=== PATIENT | male | born 1950 | race Caucasian/White ===

== ENCOUNTER 2021-01-10 18:53 | Observation (INO) | payer MEDICARE, OTHER ==
[2021-01-10] MEDS ORDERED: ACETAMINOPHEN TAB 500 MG TAB PO STA (19:36)
[2021-01-10] MEDS ORDERED: IBUPROFEN 600 MG TAB PO STA (19:36)
[2021-01-10 20:27] LABS: Appearance,Urine Cloudy (Clear); Bacteria,Urine Rare /hpf; Bilirubin,Urine Negative (Negative); Blood,Urine Trace (Negative); Color,Urine Yellow; Glucose,Urine (UA) Negative (Negative); Ketones,Urine 2+ (Negative); Leukocyte Esterase,Urine Large (Negative); Mucus,Urine Many /hpf; Nitrite,Urine Negative (Negative); PH, Urine 5.5 (5.0-8.0); Protein,Urine 1+ (Negative); RBC,Urine 10 /hpf (0-5); Specific Gravity,Urine 1.027 (1.001-1.035); Squamous Epithelial Cell,Urine 1 /hpf (0-4); Urobilinogen,Urine <2.0 mg/dL (<2.0); WBC,Urine >182 /hpf (0-5)
[2021-01-10 20:34] LABS: Basophils % (A) 0 %; Eosinophils # (A) 0.1 k/uL (0-0.7); Eosinophils % (A) 1 %; HCT 41.8 % (39.0-53.0); HGB 14.6 gm/dL (13.0-17.5); Lymphocytes # (A) 0.7 k/uL (1.0-4.8); Lymphocytes % (A) 5 %; MCHC 34.9 g/dL (31.0-37.0); MCV 94.4 fL (80.0-100.0); Mean Platelet Volume 7.8; Monocytes # (A) 0.6 k/uL (0-1.0); Monocytes % (A) 4 %; Neutrophils # (A) 11.6 k/uL (1.3-7.7); Neutrophils % (A) 89 %; Platelet Count 222 k/uL (150-450); RBC 4.43 m/uL (4.30-5.90); RDW 11.8 % (11.5-15.5); WBC 13.1 k/uL (3.8-10.6)
[2021-01-10] MEDS: SODIUM CHLORIDE 0.9% 500 ML 500 ML IV SCH ×2 (20:40→21:10)
[2021-01-10 20:42] LABS: ALT 16 U/L (4-49); AST 31 U/L (17-59); African American GFR (CKD) >90 (>60 ml/min/1.73 sqM); Albumin 4.2 g/dL (3.5-5.0); Alkaline Phosphatase 72 U/L (38-126); Anion Gap 9 mmol/L; Blood Urea Nitrogen 16 mg/dL (9-20); Calcium 9.1 mg/dL (8.4-10.2); Carbon Dioxide 22 mmol/L (22-30); Chloride 102 mmol/L (98-107); Glucose 114 mg/dL (74-99); Non-African American GFR(CKD) 78 (>60 ml/min/1.73 sqM); Sodium 133 mmol/L (137-145); Total Bilirubin 0.9 mg/dL (0.2-1.3)
[2021-01-10 20:43] LABS: INR 0.9 (<1.2); Partial Thromboplastin Time 24.5 sec (22.0-30.0); Prothrombin Time 10.1 sec (9.0-12.0)
[2021-01-10] MEDS ORDERED: cefTRIAXone IN SWFI 1,000 MG/10 ML SYRINGE IVP STA (20:55)
--- NOTE | 2021-01-10 21:16 | ED ---
General Adult HPI - General Chief complaint: Urogenital Stated complaint: Pain when using bathroom, Fever and chills Time Seen by Provider: 01/10/21 19:16 Source: patient Mode of arrival: ambulatory Limitations: no limitations - History of Present Illness Initial comments: 70 year-old male patient presents to the emergency department for evaluation of dysuria and urinary incontinence that has been going on for the last 2-3 days. Patient denies any current sexual activity or concern for STI. Denies any back or flank pain. Does report some nausea, denies vomiting. Denies any abdominal pain, constipation, or diarrhea. Denies history of kidney stones or UTI. Denies any history of Diabetes. Patient denies any recent rash, cough, shortness of breath, chest pain, constipation, back pain, numbness, tingling, dizziness, weakness, headache, visual changes, or any other complaints. - Related Data Home Medications Medication Instructions Recorded Confirmed Acetaminophen [Tylenol] 1,000 mg PO Q4-6H PRN 01/10/21 01/10/21 Ascorbic Acid [Vitamin C] 1,000 mg PO HS 01/10/21 01/10/21 Cholecalciferol [Vitamin D3 (25 25 mcg PO DAILY 01/10/21 01/10/21 Mcg = 1000 Iu)] FLUoxetine HCL [PROzac] 40 mg PO DAILY 01/10/21 01/10/21 Glucosamine HCl/Chondroitin Cao 1 cap PO HS 01/10/21 01/10/21 [Glucosamine-Chondroitin Cap] L.acidoph,Paracasei, B.lactis 1 cap PO 01/10/21 01/10/21 [Probiotic] Loratadine 10 mg PO 01/10/21 01/10/21 Multivitamins, Thera [Multivitamin 1 tab PO 01/10/21 01/10/21 (formulary)] [place]-3 Fatty Acids [[place]-3] 1,000 mg PO HS 01/10/21 01/10/21 Potassium Gluconate [Potassium 99 mg PO 01/10/21 01/10/21 Gluconate ER] Simvastatin [Zocor] 20 mg PO 01/10/21 01/10/21 cycloSPORINE 0.05% OPHTH SOLN 1 drop BOTH EYES BID 01/10/21 01/10/21 [Restasis] Allergies Allergy/AdvReac Type Severity Reaction Status Date / Time milk AdvReac Diarrhea Verified 01/10/21 20:26 Review of Systems ROS Statement: Those systems with pertinent positive or pertinent negative responses have been documented in the HPI. ROS Other: All systems not noted in ROS Statement are negative. Past Medical History Past Medical History: Hypertension History of Any Multi-Drug Resistant Organisms: None Reported Past Surgical History: Orthopedic Surgery, Tonsillectomy Additional Past Surgical History / Comment(s): hip replacement Past Psychological History: No Psychological Hx Reported Smoking Status: Never smoker Past Alcohol Use History: None Reported Past Drug Use History: None Reported General Exam Limitations: no limitations General appearance: alert, in no apparent distress, other (This is a well- developed, well-nourished adult male patient in no acute distress. Vital signs upon presentation are temperature 103.1F, pulse 85, respirations 17, blood pressure 157/84, pulse ox 97% on room air.) Eye exam: Present: normal appearance, PERRL, EOMI. Absent: scleral icterus, conjunctival injection, periorbital swelling ENT exam: Present: normal exam, normal oropharynx, mucous membranes moist Respiratory exam: Present: normal lung sounds bilaterally. Absent: respiratory distress, wheezes, rales, rhonchi, stridor Cardiovascular Exam: Present: regular rate, normal rhythm, normal heart sounds. Absent: systolic murmur, diastolic murmur, rubs, gallop, clicks GI/Abdominal exam: Present: soft, normal bowel sounds. Absent: distended, tenderness, guarding, rebound, rigid Back exam: Present: normal inspection. Absent: CVA tenderness (R), CVA tenderness (L) Neurological exam: Present: alert, oriented X3, CN II-XII intact Psychiatric exam: Present: normal affect, normal mood Skin exam: Present: warm, dry, intact, normal color. Absent: rash Course Vital Signs 01/10/21 19:11 Temperature 103.1 F H Pulse Rate 85 Respiratory 17 Rate Blood Pressure 157/84 O2 Sat by Pulse 97 Oximetry Medical Decision Making - Medical Decision Making 70-year-old male patient presents for evaluation of dysuria and urinary incontinence that started 2-3 days ago. Physical examination did reveal soft nontender abdomen. No CVA tenderness. Labs reviewed and did reveal white blood cell count at 13.1, neutrophils 11.6, lymphocytes 0.7. Urinalysis showed 1+ protein, 2+ ketones, trace blood, large leukocyte esterase, 10 red blood cells, greater than 182 white blood cells, few white blood cell clumps, rare bacteria, and many mucus. He did test negative for COVID-19 and did receive both sides her vaccinations. I did discuss findings and results with him. We'll be giving IV Rocephin. Admitted to the hospital for further monitoring and evaluation. He is agreeable this plan. Case discussed with my attending Dr. Holland. - Lab Data Result diagrams: 01/10/21 20:11 01/10/21 20:11 Lab Results 01/10/21 01/10/21 01/10/21 Range/Units 20:11 20:11 20:11 WBC 13.1 H (3.8-10.6) k/uL RBC 4.43 (4.30-5.90) m/uL Hgb 14.6 (13.0-17.5) gm/dL Hct 41.8 (39.0-53.0) % MCV 94.4 (80.0-100.0) fL MCH 33.0 (25.0-35.0) pg MCHC 34.9 (31.0-37.0) g/dL RDW 11.8 (11.5-15.5) % Plt Count 222 (150-450) k/uL MPV 7.8 Neutrophils % 89 % Lymphocytes % 5 % Monocytes % 4 % Eosinophils % 1 % Basophils % 0 % Neutrophils # 11.6 H (1.3-7.7) k/uL Lymphocytes # 0.7 L (1.0-4.8) k/uL Monocytes # 0.6 (0-1.0) k/uL Eosinophils # 0.1 (0-0.7) k/uL Basophils # 0.0 (0-0.2) k/uL PT 10.1 (9.0-12.0) sec INR 0.9 (<1.2) APTT 24.5 (22.0-30.0) sec Sodium (137-145) mmol/L Potassium (3.5-5.1) mmol/L Chloride (98-107) mmol/L Carbon Dioxide (22-30) mmol/L Anion Gap mmol/L BUN (9-20) mg/dL Creatinine (0.66-1.25) mg/dL Est GFR (CKD-EPI)AfAm (>60 ml/min/1.73 sqM) Est GFR (CKD-EPI)NonAf (>60 ml/min/1.73 sqM) Glucose (74-99) mg/dL Plasma Lactic Acid Lucius (0.7-2.0) mmol/L Calcium (8.4-10.2) mg/dL Total Bilirubin (0.2-1.3) mg/dL AST (17-59) U/L ALT (4-49) U/L Alkaline Phosphatase (38-126) U/L Total Protein (6.3-8.2) g/dL Albumin (3.5-5.0) g/dL Urine Color Yellow Urine Appearance Cloudy (Clear) Urine pH 5.5 (5.0-8.0) Ur Specific [place] 1.027 (1.001-1.035) Urine Protein 1+ H (Negative) Urine Glucose (UA) Negative (Negative) Urine Ketones 2+ H (Negative) Urine Blood Trace H (Negative) Urine Nitrite Negative (Negative) Urine Bilirubin Negative (Negative) Urine Urobilinogen <2.0 (<2.0) mg/dL Ur Leukocyte Esterase Large H (Negative) Urine RBC 10 H (0-5) /hpf Urine WBC >182 H (0-5) /hpf Urine WBC Clumps Few H (None) /hpf Ur Squamous Epith Cells 1 (0-4) /hpf Urine Bacteria Rare H (None) /hpf Urine Mucus Many H (None) /hpf Coronavirus (PCR) (Not Detectd) 01/10/21 01/10/21 01/10/21 Range/Units 20:11 20:11 20:11 WBC (3.8-10.6) k/uL RBC (4.30-5.90) m/uL Hgb (13.0-17.5) gm/dL Hct (39.0-53.0) % MCV (80.0-100.0) fL MCH (25.0-35.0) pg MCHC (31.0-37.0) g/dL RDW (11.5-15.5) % Plt Count (150-450) k/uL MPV Neutrophils % % Lymphocytes % % Monocytes % % Eosinophils % % Basophils % % Neutrophils # (1.3-7.7) k/uL Lymphocytes # (1.0-4.8) k/uL Monocytes # (0-1.0) k/uL Eosinophils # (0-0.7) k/uL Basophils # (0-0.2) k/uL PT (9.0-12.0) sec INR (<1.2) APTT (22.0-30.0) sec Sodium 133 L (137-145) mmol/L Potassium 4.0 (3.5-5.1) mmol/L Chloride 102 (98-107) mmol/L Carbon Dioxide 22 (22-30) mmol/L Anion Gap 9 mmol/L BUN 16 (9-20) mg/dL Creatinine 0.99 (0.66-1.25) mg/dL Est GFR (CKD-EPI)AfAm >90 (>60 ml/min/1.73 sqM) Est GFR (CKD-EPI)NonAf 78 (>60 ml/min/1.73 sqM) Glucose 114 H (74-99) mg/dL Plasma Lactic Acid Lucius 0.9 (0.7-2.0) mmol/L Calcium 9.1 (8.4-10.2) mg/dL Total Bilirubin 0.9 (0.2-1.3) mg/dL AST 31 (17-59) U/L ALT 16 (4-49) U/L Alkaline Phosphatase 72 (38-126) U/L Total Protein 7.0 (6.3-8.2) g/dL Albumin 4.2 (3.5-5.0) g/dL Urine Color Urine Appearance (Clear) Urine pH (5.0-8.0) Ur Specific [place] (1.001-1.035) Urine Protein (Negative) Urine Glucose (UA) (Negative) Urine Ketones (Negative) Urine Blood (Negative) Urine Nitrite (Negative) Urine Bilirubin (Negative) Urine Urobilinogen (<2.0) mg/dL Ur Leukocyte Esterase (Negative) Urine RBC (0-5) /hpf Urine WBC (0-5) /hpf Urine WBC Clumps (None) /hpf Ur Squamous Epith Cells (0-4) /hpf Urine Bacteria (None) /hpf Urine Mucus (None) /hpf Coronavirus (PCR) Not Detected (Not Detectd) Disposition Clinical Impression: UTI (urinary tract infection), SIRS (systemic inflammatory response syndrome) Disposition: ADMITTED IP TO THIS [facility] Condition: Serious Referrals: Darnell Ferreira MD [Primary Care Provider] - 1-2 days Decision to Admit Reason: Admit from EC Decision Date: 01/10/21 Decision Time: 21:19
[2021-01-10] MEDS ORDERED: NALOXONE 0.4 MG/ML 1 ML VIAL IV PRN (21:32)
[2021-01-10] MEDS ORDERED: ACETAMINOPHEN TAB 325 MG TAB PO PRN (21:50)
[2021-01-10] MEDS: SODIUM CHLORIDE 0.9% 1,000 ML IV SCH (23:17)
--- NOTE | 2021-01-10 23:36 | P.HPIM ---
History of Present Illness H&P Date: 01/10/21 The patient is a 70-year-old male with a PMH of hypertension who presented to the emergency room with complaints of dysuria and urinary incontinence. He reports that his symptoms started roughly 3 days ago and gradually progressed and subsequently developed fever and chills. He denied back or flank pain or pain radiating to the groin. He further denied history of STI's or any concerns regarding high-risk sexual activity or new sexual partners. Denied history of kidney stones. Patient reports that he did have prior bout of UTI several months ago for which she was seen at a urologist office where no structural defects or cause for UTI was found. He further denied chest discomfort, shortn ess of breath, cough. Denied nausea, vomiting, abdominal pain, diarrhea. The patient reports feeling significantly better at time of evaluation since his initial presentation. In the emergency room, the patient was febrile upon presentation with T-max of 103.1. Laboratory evaluation was remarkable for leukocytosis of 13.1, and UA consistent with UTI. Review of systems: Pertinent positives and negatives as discussed in HPI, a complete review of systems was performed and all other systems are negative. Physical examination: General: non toxic, no distress, appears at stated age, obese Derm: no unusual rashes/lesions no unusual ecchymoses, warm, dry Head: atraumatic, normocephalic, symmetric Eyes: EOMI, no lid lag, anicteric sclera, pupils equal round reactive to light ENT: Nose and ears atraumatic, no thrush, no pharyngeal erythema Neck: No thyromegaly, no cervical lymphadenopathy, trachea midline, supple Mouth: no lip lesion, mucus membranes moist Cardiovascular: S1S2 reg, no murmur, positive posterior tibial pulse bilateral, no edema, capillary refill less than 2 seconds Lungs: CTA bilateral, no rhonchi, no rales , no accessory muscle use Abdominal: soft, nontender to palpation, no guarding, no appreciable organomegaly, normal bowel sounds Ext: no gross muscle atrophy, muscle strength 5 out of 5 in all 4 extremities grossly, no contractures, Neuro: CN II-XI grossly intact, light touch intact all 4 extremities, finger to nose within normal limits, Psych: Alert, oriented, appropriate affect Assessment/plan Sepsis secondary to UTI -Continue with ceftriaxone -IV fluids -Follow up urine and blood cultures Chronic conditions: Hyperlipidemia -Continue with meds DVT prophylaxis -Heparin subcu The patient is admitted with an anticipated less than 2 midnight stay for evaluation of UTI. CODE STATUS:Full Code Discussed with: Patient Anticipated discharge date: in am Anticipated discharge place: Home Past Medical History Past Medical History: Hypertension History of Any Multi-Drug Resistant Organisms: None Reported Past Surgical History: Orthopedic Surgery, Tonsillectomy Additional Past Surgical History / Comment(s): hip replacement Past Psychological History: No Psychological Hx Reported Smoking Status: Never smoker Past Alcohol Use History: None Reported Past Drug Use History: None Reported - Past Family History Father Family Medical History: Cancer Medications and Allergies Home Medications Medication Instructions Recorded Confirmed Type Acetaminophen [Tylenol] 1,000 mg PO Q4-6H PRN 01/10/21 01/10/21 History Ascorbic Acid [Vitamin C] 1,000 mg PO HS 01/10/21 01/10/21 History Cholecalciferol [Vitamin D3 (25 25 mcg PO DAILY 01/10/21 01/10/21 History Mcg = 1000 Iu)] FLUoxetine HCL [PROzac] 40 mg PO DAILY 01/10/21 01/10/21 History Glucosamine HCl/Chondroitin Cao 1 cap PO HS 01/10/21 01/10/21 History [Glucosamine-Chondroitin Cap] L.acidoph,Paracasei, B.lactis 1 cap PO HS 01/10/21 01/10/21 History [Probiotic] Loratadine 10 mg PO HS 01/10/21 01/10/21 History Multivitamins, Thera [Multivitamin 1 tab PO HS 01/10/21 01/10/21 History (formulary)] [place]-3 Fatty Acids [[place]-3] 1,000 mg PO HS 01/10/21 01/10/21 History Potassium Gluconate [Potassium 99 mg PO HS 01/10/21 01/10/21 History Gluconate ER] Simvastatin [Zocor] 20 mg PO HS 01/10/21 01/10/21 History cycloSPORINE 0.05% OPHTH SOLN 1 drop BOTH EYES BID 01/10/21 01/10/21 History [Restasis] Allergies Allergy/AdvReac Type Severity Reaction Status Date / Time milk AdvReac Diarrhea Verified 01/10/21 20:26 Physical Exam Vitals: Vital Signs Temp Pulse Pulse Resp BP BP Pulse Ox 01/10/21 22:20 99.8 F H 62 16 120/72 96 01/10/21 22:00 99.3 F 68 18 146/53 95 01/10/21 21:15 102.3 F H 71 18 140/73 95 01/10/21 19:11 103.1 F H 85 17 157/84 97 Intake and Output 01/10/21 01/10/21 01/11/21 14:59 22:59 06:59 Other: Voiding Method Toilet Weight 94.347 kg Results CBC & Chem 7: 01/10/21 20:11 01/10/21 20:11 Labs: Abnormal Lab Results - Last 24 Hours (Table) 01/10/21 01/10/21 01/10/21 Range/Units 20:11 20:11 20:11 WBC 13.1 H (3.8-10.6) k/uL Neutrophils # 11.6 H (1.3-7.7) k/uL Lymphocytes # 0.7 L (1.0-4.8) k/uL Sodium 133 L (137-145) mmol/L Glucose 114 H (74-99) mg/dL Urine Protein 1+ H (Negative) Urine Ketones 2+ H (Negative) Urine Blood Trace H (Negative) Ur Leukocyte Esterase Large H (Negative) Urine RBC 10 H (0-5) /hpf Urine WBC >182 H (0-5) /hpf Urine WBC Clumps Few H (None) /hpf Urine Bacteria Rare H (None) /hpf Urine Mucus Many H (None) /hpf Thrombosis Risk Factor Assmnt - Choose All That Apply Each Risk Factor Represents 2 Points: Age 61-74 years Thrombosis Risk Factor Assessment Total Risk Factor Score: 2 Thrombosis Risk Factor Assessment Level: Low Risk
[2021-01-11] MEDS: HEPARIN SODIUM,PORCINE/PF 5,000 UNIT/0.5 ML SYRINGE SQ SCH ×3 (00:11→15:12)
[2021-01-11] MEDS: SODIUM CHLORIDE 0.9% 1,000 ML IV SCH ×3 (08:04→21:31)
--- NOTE | 2021-01-11 14:15 | P.PN ---
Subjective Progress Note Date: 01/11/21 No new complaints today. Pt feels much better, close to baseline. Pending UCx. Objective - Vital Signs Vital signs: Vital Signs Temp 99.2 F 01/11/21 07:00 Pulse 61 01/11/21 07:00 Resp 18 01/11/21 07:00 BP 148/75 01/11/21 07:00 Pulse Ox 99 01/11/21 07:00 Intake & Output 01/10/21 01/11/21 01/11/21 18:59 06:59 18:59 Weight 94.347 kg Other: Voiding Method Toilet # Voids 1 - Exam Gen: awake, alert HEENT: normocephalic, atraumatic, good hearing acuity, moist mucous membranes Resp: good air exchange, breathing comfortably with no accessory muscle use CVS: good distal perfusion x 4, GI: soft, NTTP, ND : no SPT, no CVAT, bustamante catheter not present MSK: no pitting edema, no clubbing Neuro: non-focal, moving all extremities Psych: cooperative, euthymic mood - Labs CBC & Chem 7: 01/10/21 20:11 01/10/21 20:11 Labs: Abnormal Lab Results - Last 24 Hours (Table) 01/10/21 01/10/21 01/10/21 Range/Units 20:11 20:11 20:11 WBC 13.1 H (3.8-10.6) k/uL Neutrophils # 11.6 H (1.3-7.7) k/uL Lymphocytes # 0.7 L (1.0-4.8) k/uL Sodium 133 L (137-145) mmol/L Glucose 114 H (74-99) mg/dL Urine Protein 1+ H (Negative) Urine Ketones 2+ H (Negative) Urine Blood Trace H (Negative) Ur Leukocyte Esterase Large H (Negative) Urine RBC 10 H (0-5) /hpf Urine WBC >182 H (0-5) /hpf Urine WBC Clumps Few H (None) /hpf Urine Bacteria Rare H (None) /hpf Urine Mucus Many H (None) /hpf Assessment and Plan Assessment: Sepsis secondary to UTI -Continue with ceftriaxone -IV fluids -Follow up urine and blood cultures Chronic conditions: Hyperlipidemia -Continue with meds DVT prophylaxis -Heparin subcu The patient is admitted with an anticipated less than 2 midnight stay for evaluation of UTI. CODE STATUS:Full Code Discussed with: Patient Anticipated discharge date: in am Anticipated discharge place: Home
[2021-01-11] MEDS ORDERED: ATORVASTATIN 10 MG TAB PO SCH (21:00)
[2021-01-12] MEDS: HEPARIN SODIUM,PORCINE/PF 5,000 UNIT/0.5 ML SYRINGE SQ SCH ×2 (00:17→07:31)
[2021-01-12 02:13] VITALS: RESP 17
[2021-01-12] MEDS: SODIUM CHLORIDE 0.9% 1,000 ML IV SCH (03:36)
[2021-01-12 07:32] VITALS: BP 136/76; PULSE 68; TEMP 98.5
[2021-01-12 09:19] LABS: HGB 11.8 g/dL (13.0-17.0); MCH 31.7 pg (27.0-32.0); MCHC 32.8 g/dL (32.0-37.0); MCV 96.8 fL (80.0-97.0); Mean Platelet Volume 9.7 fL (9.5-12.2); Platelet Count 188 X 10*3/uL (140-440); RBC 3.72 X 10*6/uL (4.40-5.60); RDW 11.9 % (11.5-14.5); WBC 7.95 X 10*3/uL (4.50-10.00)
[2021-01-12 09:31] LABS: African American GFR (CKD) 89.2 (60.0-200.0); Calcium 8.7 mg/dL (8.7-10.3)
--- NOTE | 2021-01-12 13:01 | P.DS ---
Providers Date of admission: 01/10/21 21:34 Expected date of discharge: 01/12/21 Attending physician: Sandie Eckert MD Primary care physician: Darnell Ferreira [facility] Course: Sepsis secondary to UTI Patient admitted for UTI. Started on ceftriaxone and IVF. UCx did not show microbial growth. However, patient's symptoms of dysuria and hesitancy, as well as chills/sweats, resolved after 2 days of abx. Patient was switched to oral ciprofloxacin to complete an 8 day course. Pt will f/u with PCP. Chronic conditions: Hyperlipidemia -No changes to home meds Assessment: Gen: awake, alert HEENT: normocephalic, atraumatic, good hearing acuity, moist mucous membranes Resp: good air exchange, breathing comfortably with no accessory muscle use CVS: good distal perfusion x 4, GI: soft, NTTP, ND : no SPT, no CVAT, bustamante catheter not present MSK: no pitting edema, no clubbing Neuro: non-focal, moving all extremities Psych: cooperative, euthymic mood Patient Condition at Discharge: Good Plan - Discharge Summary Discharge Rx Participant: No New Discharge Prescriptions: New Ciprofloxacin HCl [Cipro] 500 mg PO Q12H #10 tab Continue Multivitamins, Thera [Multivitamin (formulary)] 1 tab PO HS Cholecalciferol [Vitamin D3 (25 Mcg = 1000 Iu)] 25 mcg PO DAILY FLUoxetine HCL [PROzac] 40 mg PO DAILY Acetaminophen [Tylenol] 1,000 mg PO Q4-6H PRN PRN Reason: Pain Or Fever > 100.5 cycloSPORINE 0.05% OPHTH SOLN [Restasis] 1 drop BOTH EYES BID Simvastatin [Zocor] 20 mg PO HS Loratadine 10 mg PO HS L.acidoph,Paracasei, B.lactis [Probiotic] 1 cap PO HS Glucosamine HCl/Chondroitin Cao [Glucosamine-Chondroitin Cap] 1 cap PO HS Ascorbic Acid [Vitamin C] 1,000 mg PO HS [place]-3 Fatty Acids [[place]-3] 1,000 mg PO HS Potassium Gluconate [Potassium Gluconate ER] 99 mg PO HS Discharge Medication List Acetaminophen [Tylenol] 1,000 mg PO Q4-6H PRN 01/10/21 [History] Ascorbic Acid [Vitamin C] 1,000 mg PO HS 01/10/21 [History] Cholecalciferol [Vitamin D3 (25 Mcg = 1000 Iu)] 25 mcg PO DAILY 01/10/21 [History] FLUoxetine HCL [PROzac] 40 mg PO DAILY 01/10/21 [History] Glucosamine HCl/Chondroitin Cao [Glucosamine-Chondroitin Cap] 1 cap PO HS 01/10/21 [History] L.acidoph,Paracasei, B.lactis [Probiotic] 1 cap PO HS 01/10/21 [History] Loratadine 10 mg PO HS 01/10/21 [History] Multivitamins, Thera [Multivitamin (formulary)] 1 tab PO HS 01/10/21 [History] [place]-3 Fatty Acids [[place]-3] 1,000 mg PO HS 01/10/21 [History] Potassium Gluconate [Potassium Gluconate ER] 99 mg PO HS 01/10/21 [History] Simvastatin [Zocor] 20 mg PO HS 01/10/21 [History] cycloSPORINE 0.05% OPHTH SOLN [Restasis] 1 drop BOTH EYES BID 01/10/21 [History] Ciprofloxacin HCl [Cipro] 500 mg PO Q12H #10 tab 01/12/21 [Rx] Follow up Appointment(s)/Referral(s): Darnell Ferreira MD [Primary Care Provider] - 1-2 days Patient Instructions/Handouts: Urinary Tract Infection in Men (DC) Activity/Diet/Wound Care/Special Instructions: Take antibiotics until completely gone. Drink plenty of fluid. Discharge Disposition: HOME SELF-CARE
== END 2021-01-12 12:10 | disposition home or self-care (01) ==
LOC: EC 18:53 → 4SSUR 21:34
PROVIDERS: ADMIT Internal Medicine; ATTEND Internal Medicine
DX: A41.9 Sepsis, unspecified organism (principal); N39.0 Urinary tract infection, site not specified; E78.5 Hyperlipidemia, unspecified; Z20.822 Contact with and (suspected) exposure to COVID-19; I10 Essential (primary) hypertension; Z79.899 Other long term (current) drug therapy; Z91.011 Allergy to milk products; Z96.649 Presence of unspecified artificial hip joint; Z80.9 Family history of malignant neoplasm, unspecified
CPT/HCPCS: 99284; 96366 ×2; 96372; 96365; 96361; 96375; 36415; 93005; 80053; 80048; 83605; 85025; 85027; 85610; 85730; 81001; 87040; 87086; 87077; 87186; 87635; G0378 ×3; J0696 ×3; J1644